=== PATIENT | male | born 1970 | race African-American/Black ===

== ENCOUNTER → 2023-12-30 | Emergency (ER) | payer SELFPAY ==
[2023-12-30 08:17] VITALS: BP 145/91; PULSE 79; RESP 14; TEMP 36.1; O2SAT 99; BMI 22.5
--- NOTE | 2023-12-30 08:44 | ED.VIS.GI ---
HPI HPI - GI History of Present Illness Chief Complaint: Abd Pain Detail of Chief Complaint: Constipated for a week. Limited bowel movements. Informant: patient Abdominal Pain/Flank Pain Onset: Days Context: Gradual Onset Current Severity: Mild Maximum Severity: Mild Worsened by: Nothing Relieved by: Nothing Nausea/Vomiting/Emesis GI Symptom: Negative for Nausea or Vomiting Diarrhea/Melena/Hematochezia GI Symptom: Negative for Diarrhea, Melena or Hematochezia Associated Symptoms Associated Symptoms: Negative for Dysuria, Frequency, Hematuria or Urgency Narrative Narrative: Healthy 53-year-old male no prior abdominal surgeries. Denies medical problems. Says he has not a good bowel movement for a week. Denies nausea, vomiting or diarrhea. Has had some dry harder stools. No dysuria. No fever. Prior similar symptoms: No Recent Illness/Hospitalization: No PFSH PFSH no medical history Home Medications ?Medication ?Instructions ?Recorded ?Last Taken ?Type NK 12/30/23 Unknown History Allergy/AdvReac Type Severity Reaction Status Date / Time No Known Allergies Allergy Verified 12/30/23 08:19 Social History Smoking Status: Current every day smoker ROS ROS ED ROS Narrative Constipated. Dry hard stools. Review of Systems ROS Unobtainable: Denies due to encephalopathy Constitutional Constitutional ED: Denies chills or fever(s) ENT ENT ED: Denies ear pain Cardiovascular Cardiovascular: Denies chest pain Respiratory/Chest Respiratory/Chest: Denies cough or dyspnea Gastrointestinal Gastrointestinal: Reports constipation; Denies abdominal pain, diarrhea, melena, nausea or vomiting Genitourinary Genitourinary ED: Denies dysuria or hematuria Musculoskeletal Musculoskeletal: Denies arthralgias or back pain Integumentary Denies abscess or Abrasions Neurologic Neurologic: Denies headache(s) Psychiatric Psychiatric: Denies anxiety or depression Endocrine Endocrinology: Denies polydipsia or polyphagia Hematologic/Lymphatic Hematologic/Lymphatic: Denies easy bleeding or easy bruising Allergic/Immunologic Allergic/Immunologic ED: Denies mouth swelling, tongue swelling or urticaria EXAM Physical Exam Narrative Exam Narrative: Well-appearing middle-age male. Vital signs stable afebrile. H EENT exam unremarkable. Neck nontender. No lymphadenopathy. Lungs clear to auscultation. Heart regular rhythm no murmur. Abdomen is soft, nontender, nondistended, normal bowel sounds without peritoneal signs. There is absolutely no reproducible abdominal tenderness. He denies abdominal pain. There is no hernia or mass. Right upper and right lower quadrants are unremarkable. No signs of obstruction. Normal bowel sounds. Moving all 4 extremities. Nontender no edema. Awake and alert. Answering questions and following commands. Const Vital Signs: 12/30/23 08:17 Temperature 96.9 F L Temperature Source Temporal Pulse Rate 79 Respiratory Rate 14 Blood Pressure 145/91 H Blood Pressure Mean 109 Pulse Ox 99 Oxygen Delivery Method Room Air Positive well nourished and well developed; Negative for obese, cachectic, contractures or unkempt General Appearance ED: well developed and NAD; Negative for unkempt, cachectic, contractures or pallor Nutritional Appearance: Negative for cachectic or obese HEENT Reports moist mucous membranes; Denies dry mucous membranes normocephalic and atraumatic; Negative for trauma or tenderness Mouth ED: No dry mucous membranes Mouth: No dry mucous membranes Eyes PERRL and EOMs intact bilaterally General Eye ED: Negative for pale conjunctiva or scleral icterus Neck no lymphadenopathy, supple and no JVD General: Negative for tenderness Carotids: Negative for other Lymph Lymphatic: Negative for other Resp normal respiratory effort and clear to auscultation bilaterally Effort and Inspection: Negative for respiratory distress Auscultation: Negative for rales, rhonchi, wheezes or diminished lung sounds Cardio regular rate, regular rhythm, S1 normal heart sound, S2 normal heart sound and no murmurs Rate: Negative for bradycardia or tachycardic Rhythm: Negative for abnormal rhythm GI non-tender, non-distended and no masses Inspection: Negative for abdominal distention Auscultation: normoactive bowel sounds Palpation: soft; Negative for tender, guarding, rigid, hepatomegaly, splenomegaly, hernia, mass, pulsatile mass or rebound tenderness present Back/Spine no CVA tenderness General Back: Negative for CVA tenderness Cervical Spine: Negative for cervical spine tenderness Thoracic Spine / Upper Back: Negative for thoracic spinal tenderness Lumbar Spine / Lower Back: Negative for lumbar spinal tenderness Extremity full ROM General Extremety ED: Negative for edema or tenderness General Extremity: Negative for edema Neuro CN's II-XII intact bilaterally Sensorium / Orientation: alert, oriented to person, oriented to place and oriented to time; Negative for orientation impaired, confused, lethargic or stuporous Motor Exam: strength 5/5 throughout Psych mental status grossly normal and thought process normal Appearance: Negative for unkempt Attitude: No agitated Mood & Affect: Negative for depressed, anxious or tearful Skin no wounds General Skin Exam: Negative for jaundice or pallor Lesions: no lesions Rashes: no rashes Trauma: Negative for abrasion Nails: Negative for discolored MDM MDM MDM Narrative Medical decision making narrative: 53-year-old male with limited bowel movements for a week. Abdomen is completely benign. Sounds like constipation. He has no abdominal tenderness. Has had no fever. I do not think he needs any labs or imaging. He denied discussed ways to treat constipation. Outpatient follow-up as needed. History & Record Review Discussion w/independent historian: Patient Additional record(s) reviewed:: No prior records Discharge Plan Triage Chief Complaint: Abd Pain ED Provider: Murali Woodall Dx/Rx/DC Orders Clinical Impression: Acute constipation Instructions: ED Constipation (Adult) Prescriptions: No Action NK Referrals: Darren Dumont MD [Med Staff - Director Of Elementary Education] - As Needed Yisel Fowler [Non-Staff] - As Needed Activity Restrictions/Additional Instructions: Plenty of fluids such as water and prune juice will be with constipation. Make sure you eat a lot of fruits and vegetables and I will help push things through. Return if fever or intractable vomiting. Currently do not need any labs or x-rays. Print Language: Persian Disposition Disposition: Home, Self Care
[2023-12-30 08:51] VITALS: BP 148/85; PULSE 79; RESP 18; TEMP 36.6; O2SAT 100
== END | disposition home or self-care (01) ==
PROVIDERS: Emergency Provider Emergency Medicine; Visit Provider Emergency Medicine
DX: K59.00 Constipation, unspecified (principal); F17.200 Nicotine dependence, unspecified, uncomplicated
CPT/HCPCS: 99282

== ENCOUNTER 2024-08-23 15:10 | Emergency (ER) | payer SELFPAY ==
[2024-08-23 15:11] VITALS: BP 160/92; PULSE 102; RESP 16; TEMP 36.6; O2SAT 98; BMI 25.4
--- NOTE | 2024-08-23 15:19 | EDS_ITS ---
<Statement entered by Flakito Olea DO - 08/24/24 00:31> Patient was seen and examined with physician security assistant Michelle All components of the history and physical confirmed and agreed. History of present illness and physical exam: Patient is a 53-year-old male who has no known significant past medical history who presents to the emergency department with concern for dental infection. Patient states that for the past 2 days he has had pain all along the right lower portion of his mouth and notes that a tooth is cracked and partially missing in this area. He states that it has become painful and swollen which prompted him to come here for the valuation management. He states that he has not seen a dentist in a significant mount time. Review of systems: Constitutional: Denies any fevers, chills, headaches, lightness, dizziness [place]se: Denies chest pain palpitation Respiratory: Denies coughing wheezing shortness of breath Ears nose and throat: Denies any difficulty swallowing complains of dental pain as noted above Abdominal: Denies abdominal pain nausea vomit diarrhea Neurologic: Denies any numbness, weakness, tingling Physical exam: Agree above however will add on no concern for Reggie's angina MDM Patient is a 53-year-old male who presented to the emergency department with a chief complaint of concern for dental infection. On the differential diagnose includes but not limited to periapical abscess, dental caries. Patient had the area incision and drained by the physician security assistant see note above. Patient was given prescription for penicillin VK and was advised to follow-up with a dentist. He was encouraged return with worsening symptoms or concerns. He is agreeable this plan he would like to go home at this point time all question c oncerns answered is discharged home in stable condition. Plan: Final impression: Dental abscess Disposition: Patient will be discharged home in stable condition Supervising attending attestation: Flakito Olea D.O. [facility] History of Present Illness Chief Complaint: Dental Narrative Narrative: 53-year-old male presents with concern for dental infection. He states 2 days ago he had pain in his right lower tooth which is cracked and partially missing. He states it became swollen and the pain has actually lessened. No fever chills or difficulty swallowing or breathing. PFSH PFSH Home Medications ?Medication ?Instructions ?Recorded ?Last Taken ?Type naproxen 500 mg tablet (Naprosyn) 500 mg PO BID PRN pain #20 tabs 08/23/24 Unknown Rx omeprazole magnesium 10 mg oral 10 mg PO DAILY 08/23/24 Unknown History suspension,delayed release (Prilosec) penicillin V potassium 500 mg 500 mg PO 4X/DAY 7 days #28 tabs 08/23/24 Unknown Rx tablet Allergy/AdvReac Type Severity Reaction Status Date / Time No Known Allergies Allergy Verified 08/23/24 15:11 Social History Smoking Status: Light Smoker (<10/day) ROS ROS ED ROS Narrative Constitutional: Negative for fever, chills, malaise. GI: Negative for nausea, vomiting. Neuro: Negative for headache. EXAM Physical Exam Narrative Exam Narrative: CONST: Patient sitting in no acute distress. EYES: Normal inspection. ENT: Right lower premolar is cracked in half with caries with an associated periapical abscess along the lower gumline. No tenderness to palpation over his teeth, no trismus or tongue elevation, sublingual space is soft, no drooling or stridor, normal posterior oropharynx. NECK: Normal inspection. RESP: No respiratory distress, CTAB. CVS: Regular rate and rhythm, no murmur, no gallop. SKIN: Color normal, no rash, warm, dry, intact. NEURO: Alert and answering questions appropriately. PSYCH: Normal affect. Const Vital Signs: 08/23/24 15:11 08/23/24 15:44 Temperature 98 F 98 F Temperature Source Oral Pulse Rate 102 H 102 H Respiratory Rate 16 16 Blood Pressure 160/92 H 160/92 H Blood Pressure Mean 114 114 Pulse Ox 98 98 Oxygen Delivery Method Room Air MDM MDM MDM Narrative Medical decision making narrative: History gathered from: Patient, significant other Differential includes dental infection, periapical abscess, Reggie's angina, ANUG 53-year-old male presents with 3 days of right lower dental pain and associated facial swelling. He appears well and nontoxic. His right lower premolar is carried and broken in half. There is associated gumline fullness in this area. The gums themselves look pink and healthy. There is no trismus or tongue elevation or signs of Reggie's angina. His airway is patent and he is in no distress. I had the nurse assist with Yankauer suction while I applied topical set of canes. Used an 11 blade scalpel to make an incision into the area of gingival fullness. There was bloody drainage but nothing significantly purulent. I prescribed penicillin VK. The patient states he already has naproxen and Tylenol at home. I encouraged him to follow-up with the dentist and discussed he should return if symptoms worsen. He was discharged in stable condition. Discharge Plan Triage Chief Complaint: Dental ED Midlevel Provider: Michelle Glover ED Provider: Flakito Olea Dx/Rx/DC Orders Clinical Impression: Dental caries, Dental abscess Instructions: Dental Abscess Prescriptions: New penicillin V potassium 500 mg tablet 500 mg PO 4X/DAY 7 Days Qty: 28 0RF naproxen [Naprosyn] 500 mg tablet 500 mg PO BID PRN (Reason: pain) Qty: 20 0RF No Action Prilosec 10 mg susp,delayed release for recon 10 mg PO DAILY Primary Care Provider: Care Physician,No Primary Referrals: Care Physician,No Primary [Primary Care Provider] - Activity Restrictions/Additional Instructions: Take all of the antibiotics and take naproxen as needed pain. Follow-up with a dentist. Print Language: Niuean Disposition Disposition: Home, Self Care Discharge Date/Time: 08/23/24 15:46
[2024-08-23] MEDS: Tetracaine/Benzocaine/Butamben 1 APPLIC TOPICAL (15:23)
[2024-08-23 15:44] VITALS: BP 160/92; PULSE 102; RESP 16; TEMP 36.6; O2SAT 98
== END 2024-08-23 15:46 | disposition home or self-care (01) ==
LOC: ED 15:45
PROVIDERS: Emergency Provider Emergency Medicine; Visit Provider Emergency Medicine
DX: K04.7 Periapical abscess without sinus (principal); K02.9 Dental caries, unspecified; S02.5XXA Fracture of tooth (traumatic), initial encounter for closed fracture; X58.XXXA Exposure to other specified factors, initial encounter; F17.200 Nicotine dependence, unspecified, uncomplicated
CPT/HCPCS: 41800; 64999; 99282